=== PATIENT | female | born 1980 | race Two or more races ===

== ENCOUNTER 2021-09-10 15:29 | Emergency (ER) | payer OTHER ==
[~2021-09-10] VITALS: Ht 152.4 cm; Wt 46.3 kg
[2021-09-10] MEDS ORDERED: SIMVASTATIN5 MG PO (15:50)
[2021-09-10] MEDS ORDERED: FLONASE16 GM NASAL (16:48)
[2021-09-10] MEDS ORDERED: ZYRTEC10 MG PO (16:48)
== END 2021-09-10 17:08 | disposition home or self-care (01) ==
LOC: ER 15:29
DX: J30.9 Allergic rhinitis, unspecified (principal); Z88.0 Allergy status to penicillin; Z20.822 Contact with and (suspected) exposure to COVID-19